=== PATIENT | male | born 1990 | race Caucasian/White ===

== ENCOUNTER 2017-12-06 21:25 | Emergency (ER) | payer SELFPAY ==
[2017-12-06 21:35] VITALS: BMI 33.4
--- NOTE | 2017-12-06 21:55 | ED PDOC ---
Arrival/HPI - General Chief Complaint: Shortness Of Breath Time Seen by Provider: 12/06/17 21:32 Historian: Patient - History of Present Illness Narrative History of Present Illness (Text): 12/06/17 21:54 Moe Feliciano is a 27 year old male, whose past medical history includes anxiety, who presents to the Emergency department complaining of shakiness and anxiety. Patient states he has been feeling very shaky with associated palpitations and generalized weakness. Patient notes he has a history of anxiety and notes symptoms are consistent with previous episode of anxiety. Patient denies any fever, chills, chest pain, shortness of breath, nausea, vomiting, diarrhea, urinary symptoms, back pain, neck pain, headache, dizziness , or any other complaints. Symptom Onset: Gradual Symptom Course: Unchanged Activities at Onset: Light Context: Home Past Medical History - Provider Review Nursing Documentation Reviewed: Yes - Infectious Disease Hx of Infectious Diseases: None - Tetanus Immunization Tetanus Immunization: Unknown - Past Medical History Past Medical History: No Previous - Psychiatric Hx Depression: No Hx Emotional Abuse: No Hx Physical Abuse: No Hx Substance Use: No - Past Surgical History Past Surgical History: No Previous - Anesthesia Hx Anesthesia: No - Suicidal Assessment Feels Threatened In Home Enviroment: No Family/Social History - Physician Review Nursing Documentation Reviewed: Yes Family/Social History: Unknown Family HX Smoking Status: Never Smoked Hx Alcohol Use: No Hx Substance Use: No Allergies/Home Meds Allergies/Adverse Reactions: Allergies No Known Allergies Allergy (Verified 02/08/16 17:14) per patient Review of Systems - Physician Review All systems were reviewed & negative as marked: Yes - Review of Systems Constitutional: Other (+generalized weakness). absent: Fevers Eyes: Normal ENT: Normal Respiratory: Normal. absent: SOB, Cough Cardiovascular: Palpitations Gastrointestinal: Normal. absent: Abdominal Pain, Diarrhea, Vomiting Genitourinary Male: Normal. absent: Dysuria, Frequency, Urinary Output Changes Musculoskeletal: Normal. absent: Back Pain, Neck Pain Skin: Normal. absent: Rash Neurological: absent: Headache, Dizziness Endocrine: Normal Hemo/Lymphatic: Normal Psychiatric: Anxiety Physical Exam Vital Signs Reviewed: Yes Vital Signs Temp Pulse Resp BP Pulse Ox 12/07/17 00:31 98.2 F 86 17 116/69 100 12/06/17 21:50 18 98 12/06/17 21:34 98.5 F 80 18 135/80 100 Temperature: Afebrile Blood Pressure: Normal Pulse: Regular Respiratory Rate: Normal Appearance: Positive for: Well-Appearing, Non-Toxic, Comfortable Pain Distress: None Mental Status: Positive for: Alert and Oriented X 3 - Systems Exam Head: Present: Atraumatic, Normocephalic Pupils: Present: PERRL Extroacular Muscles: Present: EOMI Conjunctiva: Present: Normal Mouth: Present: Moist Mucous Membranes Neck: Present: Normal Range of Motion Respiratory/Chest: Present: Clear to Auscultation, Good Air Exchange. No: Respiratory Distress, Accessory Muscle Use Cardiovascular: Present: Regular Rate and Rhythm, Normal S1, S2. No: Murmurs Abdomen: No: Tenderness, Distention, Peritoneal Signs Back: Present: Normal Inspection Upper Extremity: Present: Normal Inspection. No: Cyanosis, Edema Lower Extremity: Present: Normal Inspection. No: Edema Neurological: Present: GCS=15, CN II-XII Intact, Speech Normal Skin: Present: Warm, Dry, Normal Color. No: Rashes Psychiatric: Present: Alert, Oriented x 3, Normal Insight, Normal Concentration Medical Decision Making ED Course and Treatment: 12/06/17 21:54 Impression: 27 year old male complaining of anxiety, generalized weakness, and shakiness. Plan: -- EKG -- Labs, cardiac enzymes -- IV fluids -- Ativan -- Reassess and disposition Progress Notes: Reviewed EKG, NSR at [address]-segment elevations or depressions, no T-wave inversions, normal axis, normal intervals. 12/06/17 23:57 On re-evaluation, patient feels better and is in no acute distress. I have discussed the results and plan with the patient, who expresses understanding. Patient in agreement with plan to be discharged home. Patient is stable for discharge. Patient was instructed to follow up with physician or return if symptoms worsen or new concerning symptoms arise. - Lab Interpretations Lab Results: 12/06/17 22:21 12/06/17 22:21 Lab Results 12/06/17 22:21: Sodium 142, Potassium 3.7, Chloride 106, Carbon Dioxide 21, Anion Gap 19, BUN 12, Creatinine 0.9, Est GFR ( Amer) > 60, Est GFR (Non- Af Amer) > 60, Random Glucose 98, Calcium 9.1, Magnesium 2.1, Total Bilirubin 0.5, AST 22, ALT 39, Alkaline Phosphatase 71, Lactate Dehydrogenase 380, Total Creatine Kinase 310 H, CK-MB (CK-2) 1.2, CK-MB (CK-2) % Cancelled, Troponin I < 0.01, Total Protein 7.5, Albumin 4.4, Globulin 3.1, Albumin/Globulin Ratio 1.4 12/06/17 22:21: WBC 4.5, RBC 4.59, Hgb 14.9, Hct 40.7 L, MCV 88.7, MCH 32.5, MCHC 36.6, RDW 13.0, Plt Count 254, MPV 9.4, Gran % 57.0, Lymph % (Auto) 35.7 H , [place] % (Auto) 6.7 H, Eos % (Auto) 0.4 L, Baso % (Auto) 0.2, Gran # 2.54, Lymph # (Auto) 1.6, [place] # (Auto) 0.3, Eos # (Auto) 0.0, Baso # (Auto) 0.01 I have reviewed the lab results: Yes - EKG Interpretation Interpreted by ED Physician: Yes Type: 12 lead EKG - Medication Orders Current Medication Orders: Discontinued Medications Sodium Chloride (Sodium Chloride 0.9%) 1,000 mls @ 250 mls/hr IV .Q4H ONE Stop: 12/07/17 01:55 Last Admin: 12/06/17 23:02 Dose: 250 mls/hr eMAR Start Stop Document 12/06/17 23:02 IT (Rec: 12/06/17 23:02 IT [facility] [place]-[id number]) Intravenous Solution Start Date 12/06/17 Start Time 23:02 Lorazepam (Ativan) 1 mg PO STAT STA PRN Reason: Protocol Stop: 12/06/17 21:57 Last Admin: 12/06/17 23:02 Dose: 1 mg - Scribe Statement The provider has reviewed the documentation as recorded by the Doug Mclean Provider Scribe Attestation: All medical record entries made by the Scribe were at my direction and personally dictated by me. I have reviewed the chart and agree that the record accurately reflects my personal performance of the history, physical exam, medical decision making, and the department course for this patient. I have also personally directed, reviewed, and agree with the discharge instructions and disposition. Disposition/Present on Arrival - Present on Arrival Any Indicators Present on Arrival: No History of DVT/PE: No History of Uncontrolled Diabetes: No Urinary Catheter: No History of Decub. Ulcer: No History Surgical Site Infection Following: None - Disposition Have Diagnosis and Disposition been Completed?: Yes Diagnosis: Anxiety Disposition: HOME/ ROUTINE Disposition Time: 22:50 Condition: IMPROVED Discharge Instructions (ExitCare): Anxiety, Adult (DC) Additional Instructions: MOE FELICIANO, thank you for letting us take care of you today. The emergency medical care you received today was directed at your acute symptoms. If you were prescribed any medication, please fill it and take as directed. It may take several days for your symptoms to resolve. Return to the Emergency Department if your symptoms worsen, do not improve, or if you have any other problems. Please contact your doctor or call one of the physicians/clinics you have been referred to that are listed on the Patient Visit Information form that is included in your discharge packet. Bring any paperwork you were given at discharge with you along with any medications you are taking to your follow up visit. Our treatment cannot replace ongoing medical care by a primary care provider outside of the emergency department. Thank you for allowing the [facility] team to be part of your care today. Follow up with your primary care doctor in 2-3 days for re-evaluation and further management. Prescriptions: ALPRAZolam HALF TABLET [Xanax HALF TABLET] 0.125 mg PO Q8 PRN #10 tab PRN Reason: Anxiety Referrals: Yoanna Mensah MD [Primary Care Provider] - Follow up with primary Forms: [employer] (Ukrainian)
[2017-12-06] MEDS ORDERED: Sodium Chloride 0.9% 1,000 ML IV ONE (21:56)
[2017-12-06 22:29] LABS: BASO # 0.01 K/mm3 (0.0-2.0); BASO % 0.2 % (0.0-3.0); EOS % 0.4 % (1.5-5.0); GRAN # 2.54 (1.4-6.5); HEMOGLOBIN 14.9 g/dL (14.0-18.0); LYMPH # 1.6 (1.2-3.4); LYMPH % 35.7 % (22.0-35.0); MEAN CELL VOLUME 88.7 fl (80.0-105.0); MEAN CORPUSCULAR HEMOGLOBIN 32.5 pg (25.0-35.0); MEAN CORPUSCULAR HGB CONC 36.6 g/dl (31.0-37.0); MEAN PLATELET VOLUME 9.4 fl (7.0-11.0); MONO # 0.3 (0.1-0.6); MONO % 6.7 % (1.0-6.0); RBC 4.59 10^6/uL (3.5-6.1); WHITE BLOOD COUNT 4.5 10^3/ul (4.5-11.0)
[2017-12-06 22:39] LABS: ALB/GLOB RATIO 1.4 (1.1-1.8); ALBUMIN 4.4 g/dL (3.0-4.8); ALT/SGPT 39 U/L (7-56); AST/SGOT 22 U/L (17-59); BLOOD UREA NITROGEN 12 mg/dL (7-21); CALCIUM 9.1 mg/dL (8.4-10.5); GFR AFRICAN-AMERICAN > 60; GFR NON-AFRICAN AMERICAN > 60
[2017-12-06 22:49] LABS: TROPONIN I < 0.01 ng/mL
[2017-12-06 22:55] LABS: CK-MB 1.2 ng/mL (0.0-3.6)
[2017-12-07 00:33] VITALS: BP 116/69; PULSE 86; RESP 17; TEMP 98.2; O2SAT 100
--- NOTE | 2017-12-07 09:19 | CARD ---
APPROVED REPORT EKG Measurement Heart [id number] <Conclusion> Normal sinus rhythm QS in V 1,2 probably due to lead placement Suggest repeat ECG
== END 2017-12-07 00:33 | disposition home or self-care (01) ==
LOC: ED 21:25
DX: F41.9 Anxiety disorder, unspecified (principal)
CPT/HCPCS: 80053; 82550; 82553; 83615; 83735; 84484; 85025; 93005; 99284; J7030

== ENCOUNTER 2018-01-28 21:11 | Emergency (ER) | payer SELFPAY ==
[2018-01-28 21:11] VITALS: BMI 33.4
--- NOTE | 2018-01-28 21:31 | ED PDOC ---
Arrival/HPI <Malik Fatima - Last Filed: 01/29/18 01:42> - General Historian: Patient <Padilla Rhodes - Last Filed: 01/29/18 14:47> - General Time Seen by Provider: 01/28/18 21:22 - History of Present Illness Narrative History of Present Illness (Text): 01/28/18 21:22 28 y/o male, no significant pmh, psychiatric history including anxiety, nkda, c/ o feeling anxious and dizziness after using rogaine for his alopecia. Pt. stated that he has been using topical rogaine for over 2 years, been feeling anxious and dizziness, seen by the pmd as well, prescribed xanax but out of the medication, started xanax recently about 1 week ago, no night sweat, no rash, no change in vision, no palpitation, no other medical or psychological complaints. (Padilla Rhodes) Past Medical History - Provider Review Nursing Documentation Reviewed: Yes - Infectious Disease Hx of Infectious Diseases: None - Tetanus Immunization Tetanus Immunization: Unknown - Past Medical History Past Medical History: No Previous - Psychiatric Hx Depression: No Hx Emotional Abuse: No Hx Physical Abuse: No Hx Substance Use: No - Past Surgical History Past Surgical History: No Previous - Anesthesia Hx Anesthesia: No - Suicidal Assessment Feels Threatened In Home Enviroment: No <Padilla Rhodes - Last Filed: 01/29/18 14:47> Family/Social History - Physician Review Nursing Documentation Reviewed: Yes Family/Social History: Unknown Family HX Smoking Status: Never Smoked Hx Alcohol Use: No Hx Substance Use: No <Padilla Rhodes - Last Filed: 01/29/18 14:47> Allergies/Home Meds <Malik Fatima - Last Filed: 01/29/18 01:42> <Padilla Rhodes - Last Filed: 01/29/18 14:47> Allergies/Adverse Reactions: Allergies No Known Allergies Allergy (Verified 02/08/16 17:14) per patient Review of Systems - Review of Systems Constitutional: absent: Fatigue, Fevers Eyes: absent: Vision Changes ENT: absent: Hearing Changes Respiratory: absent: SOB, Cough Cardiovascular: absent: Chest Pain Gastrointestinal: absent: Abdominal Pain, Nausea, Vomiting Musculoskeletal: absent: Arthralgias, Back Pain Skin: absent: Rash, Pruritis Neurological: Dizziness. absent: Headache Psychiatric: Anxiety. absent: Depression, Suicidal Ideation <Padilla Rhodes Q - Last Filed: 01/29/18 14:47> Physical Exam <KushalMalik - Last Filed: 01/29/18 01:42> Vital Signs Reviewed: Yes Temperature: Afebrile Blood Pressure: Normal Pulse: Regular Respiratory Rate: Normal Appearance: Positive for: Well-Appearing, Non-Toxic, Comfortable Pain Distress: None Mental Status: Positive for: Alert and Oriented X 3 - Systems Exam Head: Present: Atraumatic, Normocephalic Pupils: Present: PERRL Extroacular Muscles: Present: EOMI Conjunctiva: Present: Normal Mouth: Present: Moist Mucous Membranes Nose (External): Present: Atraumatic. No: Abrasion, Contusion Nose (Internal): Present: Normal Inspection, No Active Bleeding. No: Rhinorrhea , Septal Hematoma, Epistaxis Neck: Present: Normal Range of Motion, Trachea Midline. No: Meningeal Signs, MIDLINE TENDERNESS, Paraspinal Tenderness, Lymphadenopathy Respiratory/Chest: Present: Clear to Auscultation, Good Air Exchange. No: Respiratory Distress, Accessory Muscle Use Cardiovascular: Present: Regular Rate and Rhythm, Normal S1, S2. No: Murmurs Abdomen: No: Tenderness, Distention, Peritoneal Signs, Rebound, Guarding Back: Present: Normal Inspection Upper Extremity: Present: Normal Inspection. No: Cyanosis, Edema Lower Extremity: Present: Normal Inspection. No: Edema Neurological: Present: GCS=15, CN II-XII Intact, Speech Normal, Motor Func Grossly Intact, Gait Normal, Memory Normal, Other (+dixhall pike test, no drift , no focal neurological deficits. ) Skin: Present: Warm, Dry, Normal Color. No: Rashes Psychiatric: Present: Alert, Oriented x 3, Normal Insight, Normal Concentration <Padilla Rhodes - Last Filed: 01/29/18 14:47> Vital Signs Temp Pulse Resp BP Pulse Ox 01/29/18 01:56 98.2 F 68 16 129/75 100 01/29/18 01:21 58 L 16 113/59 L 98 01/28/18 21:20 98.2 F 72 17 135/81 100 Medical Decision Making <Malik Fatima - Last Filed: 01/29/18 01:42> - RAD Interpretation Overcoil Stepper: Radiologist - EKG Interpretation Interpreted by ED Physician: Yes Type: 12 lead EKG <Padilla Rhodes - Last Filed: 01/29/18 14:47> ED Course and Treatment: 01/28/18 21:34 -Labs/ua/uds -CT head -EKG -Orthostatic vital signs -IVF/Valium -Observe and reassess 01/29/18 01:20 -EKG: NSR @ 73 BPM, no ST elevation or depression, no T wave inversion. -CT Head No acute findings. -Labs show no acute findings with mg 2.4 (normal bun and creatine) -UA show no UTI -UDS show +benzo as he is on the xanax. -Pt. feels better after the IVF and medication, discussed with DR. Fatima about the case and agreed to be discharged home. -This is likely medication side effect as the rogaine has vasodilator effect. Pt. is walking with normal gait and posture, no focal neurological deficits. -Discharge home with education on follow up with your own pmd and neurologist within 2 days, return to the ER for any new or worsening signs or symptoms. (Padilla Rhodes) - Lab Interpretations Lab Results: 01/28/18 22:04 01/28/18 22:04 Lab Results 01/29/18 00:35: Urine Opiates Screen Negative, Urine Methadone Screen Negative, Ur Barbiturates Screen Negative, Ur Phencyclidine Scrn Negative, Ur Amphetamines Screen Negative, U Benzodiazepines Scrn Positive H, U Oth Cocaine Metabols Negative, U Cannabinoids Screen Negative 01/29/18 00:35: Urine Color Straw, Urine Appearance Clear, Urine pH 7.0, Ur Specific [place] 1.010, Urine Protein Negative, Urine Glucose (UA) Negative, Urine Ketones Negative, Urine Blood Negative, Urine Nitrate Negative, Urine Bilirubin Negative, Urine Urobilinogen 0.2, Ur Leukocyte Esterase Negative 01/28/18 22:04: Sodium 141, Potassium 3.6, Chloride 104, Carbon Dioxide 22, Anion Gap 19, BUN 13, Creatinine 1.0, Est GFR ( Amer) > 60, Est GFR (Non- Af Amer) > 60, Random Glucose 111 H, Calcium 9.6, Magnesium 2.4 H, Total Bilirubin 0.5, AST 25, ALT 31, Alkaline Phosphatase 76, Total Protein 8.2, Albumin 4.9 H, Globulin 3.3, Albumin/Globulin Ratio 1.5 01/28/18 22:04: WBC 5.8 D, RBC 5.13, Hgb 16.5, Hct 45.8, MCV 89.3, MCH 32.2, MCHC 36.0, RDW 12.7, Plt Count 248, MPV 10.3, Gran % 61.9, Lymph % (Auto) 31.7, [place] % (Auto) 5.7, Eos % (Auto) 0.5 L, Baso % (Auto) 0.2, Gran # 3.56, Lymph # ( Auto) 1.8, [place] # (Auto) 0.3, Eos # (Auto) 0.0, Baso # (Auto) 0.01 - RAD Interpretation Radiology Orders: 01/28/18 21:36 HEAD W/O CONTRAST [CT] Stat 01/28/18 21:36 HEAD W/O CONTRAST [CT] Stat FINDINGS: Brain: Normal. No hemorrhage. No significant white matter disease. No edema. Ventricles: Normal. No ventriculomegaly. Bones/joints: Normal. No acute fracture. Sinuses: Normal as visualized. No acute sinusitis. Mastoid air cells: Normal as visualized. No mastoid effusion. Soft tissues: Normal. IMPRESSION: No acute findings. Thank you for allowing us to participate in the care of your patient. Dictated and Authenticated by: Keeley Renee MD 01/29/2018 1:14 AM Eastern Time ([place] & [place]) (Padilla Rhodes) - EKG Interpretation EKG Interpretation (Text): 01/28/18 21:38 -EKG: NSR @ 73 BPM, no ST elevation or depression, no T wave inversion. (Padilla Rhodes) - Medication Orders Current Medication Orders: Discontinued Medications Diazepam (Valium) 10 mg PO ONCE ONE PRN Reason: Protocol Stop: 01/28/18 21:37 Last Admin: 01/28/18 22:16 Dose: 10 mg Sodium Chloride (Sodium Chloride 0.9%) 1,000 mls @ 999 mls/hr IV .Q1H1M STA Stop: 01/28/18 22:36 Last Admin: 01/28/18 22:16 Dose: 999 mls/hr eMAR Start Stop Document 01/28/18 22:16 IT (Rec: 01/28/18 22:16 IT [id number]) Intravenous Solution Start Date 01/28/18 Start Time 22:16 - PA / DATA ANALYST / Resident Statement BRAIN has reviewed & agrees with the documentation as recorded. BRAIN has examined the patient and agrees with the treatment plan. <Malik Fatima - Last Filed: 01/29/18 01:42> - PA / DATA ANALYST / Resident Statement BRAIN has reviewed & agrees with the documentation as recorded. BRAIN has examined the patient and agrees with the treatment plan. <Padilla Rhodes - Last Filed: 01/29/18 14:47> Disposition/Present on Arrival <Malik Fatima - Last Filed: 01/29/18 01:42> - Present on Arrival Any Indicators Present on Arrival: No History of DVT/PE: No History of Uncontrolled Diabetes: No Urinary Catheter: No History of Decub. Ulcer: No History Surgical Site Infection Following: None - Disposition Have Diagnosis and Disposition been Completed?: Yes Disposition Time: 01:21 Patient Plan: Discharge <Padilla Rhodes - Last Filed: 01/29/18 14:47> - Disposition Diagnosis: Medication side effect, Vertigo Disposition: HOME/ ROUTINE Condition: GOOD Additional Instructions: -Discharge home with meclizine, education on follow up with your own pmd and neurologist within 2 days, return to the ER for any new or worsening signs or symptoms. Prescriptions: Meclizine [Meclizine*] 25 mg PO Q6 #30 tab Referrals: Cameron Urena MD [Staff Provider] - Follow up with primary Hawk Bonds MD [Staff Provider] - Follow up with primary Yoanna Mensah MD [Family Provider] - Follow up with primary Forms: WORK NOTE
[2018-01-28] MEDS ORDERED: Sodium Chloride 0.9% 1,000 ML IV STA (21:36)
[2018-01-28 22:21] LABS: BASO # 0.01 K/mm3 (0.0-2.0); BASO % 0.2 % (0.0-3.0); EOS % 0.5 % (1.5-5.0); GRAN # 3.56 (1.4-6.5); GRAN % 61.9 % (50.0-68.0); HEMOGLOBIN 16.5 g/dL (14.0-18.0); LYMPH # 1.8 (1.2-3.4); LYMPH % 31.7 % (22.0-35.0); MEAN CELL VOLUME 89.3 fl (80.0-105.0); MEAN CORPUSCULAR HEMOGLOBIN 32.2 pg (25.0-35.0); MEAN PLATELET VOLUME 10.3 fl (7.0-11.0); MONO # 0.3 (0.1-0.6); MONO % 5.7 % (1.0-6.0); RBC 5.13 10^6/uL (3.5-6.1); RED CELL DISTRIBUTION WIDTH 12.7 % (11.5-14.5); WHITE BLOOD COUNT 5.8 10^3/ul (4.5-11.0)
[2018-01-28 22:33] LABS: ALB/GLOB RATIO 1.5 (1.1-1.8); ALBUMIN 4.9 g/dL (3.0-4.8); ALT/SGPT 31 U/L (7-56); AST/SGOT 25 U/L (17-59); BLOOD UREA NITROGEN 13 mg/dL (7-21); CALCIUM 9.6 mg/dL (8.4-10.5); GFR NON-AFRICAN AMERICAN > 60
[2018-01-29 00:50] LABS: URINE BILIRUBIN NEGATIVE (NEGATIVE); URINE BLOOD NEGATIVE (NEGATIVE); URINE GLUCOSE (UA) NEGATIVE (NEGATIVE); URINE LEUKOCYTE ESTERASE NEGATIVE Leu/uL (NEGATIVE); URINE PROTEIN NEGATIVE mg/dL (<30 mg/dL); URINE UROBILINOGEN 0.2 E.U./dL (<1 E.U./dL)
[2018-01-29 00:55] LABS: URINE APPEARANCE CLEAR (CLEAR); URINE COLOR STRAW (YELLOW)
[2018-01-29 01:20] VITALS: TEMP 98.2
[2018-01-29 01:23] VITALS: RESP 16
[2018-01-29 01:24] LABS: BARBITURATES, UR NEGATIVE (NEGATIVE); BENZODIAZEPINES, UR POSITIVE (NEGATIVE); OPIATES, UR NEGATIVE (NEGATIVE); PHENCYCLIDINE, UR NEGATIVE (NEGATIVE)
[2018-01-29 01:57] VITALS: BP 129/75; PULSE 68; O2SAT 100
--- NOTE | 2018-01-29 08:19 | CT ---
Date of service: 01/29/2018 PROCEDURE: CT HEAD WITHOUT CONTRAST. HISTORY: Chronic Dizziness COMPARISON: None available. TECHNIQUE: Axial computed tomography images were obtained through the head/brain without intravenous contrast. Radiation dose: Total exam DLP = 908 mGy-cm. This CT exam was performed using one or more of the following dose reduction techniques: Automated exposure control, adjustment of the mA and/or kV according to patient size, and/or use of iterative reconstruction technique. FINDINGS: HEMORRHAGE: No intracranial hemorrhage. BRAIN: No mass effect or edema. No atrophy or chronic microvascular ischemic changes. VENTRICLES: Unremarkable. No hydrocephalus. CALVARIUM: Unremarkable. PARANASAL SINUSES: Unremarkable as visualized. No significant inflammatory changes. MASTOID AIR CELLS: Unremarkable as visualized. No inflammatory changes. OTHER FINDINGS: The report concurs with the preliminary [facility] report IMPRESSION: No acute findings
--- NOTE | 2018-01-29 09:12 | CARD ---
APPROVED REPORT Date of service: 01/28/2018 EKG Measurement Heart [id number] <Conclusion> Normal sinus rhythm with sinus arrhythmia QS in V1 NSSTW changes, new
== END 2018-01-29 01:56 | disposition home or self-care (01) ==
LOC: ED 21:11
DX: R42 Dizziness and giddiness (principal); T49.8X5A Adverse effect of other topical agents, initial encounter
CPT/HCPCS: 70450; 80053; 81003; 83735; 85025; 93005; 99284; G0480; J7030